=== PATIENT | male | born 1995 | race Two or more races ===

== ENCOUNTER 2019-05-30 08:30 | Emergency (ER) | payer SELFPAY ==
[~2019-05-30] VITALS: Ht 170.2 cm; Wt 67.1 kg
[2019-05-30 09:02] VITALS: BP 125/74
[2019-05-30 09:47] LABS: INFLUENZA A PATIENT NEGATIVE (NEGATIVE)
[2019-05-30 09:48] LABS: INFLUENZA B PATIENT POSITIVE (NEGATIVE)
[2019-05-30] MEDS ORDERED: ONDA4TAB12 PO (09:52)
[2019-05-30] MEDS ORDERED: OSEL75CA PO (09:52)
--- NOTE | 2019-05-30 09:52 | PHYS DOC ---
Past Medical History Past Medical History: No Pertinent History Past Surgical History: No Surgical History Alcohol Use: Occasionally Drug Use: None Adult General Chief Complaint Chief Complaint: FLU SYMPTOM HPI HPI Patient is a 24 year old [f__sex] who presents with [] Review of Systems Review of Systems Constitutional: Denies fever or chills [] Eyes: Denies change in visual acuity, redness, or eye pain [] HENT: Denies nasal congestion or sore throat [] Respiratory: Denies cough or shortness of breath [] Cardiovascular: No additional information not addressed in HPI [] GI: Denies abdominal pain, nausea, vomiting, bloody stools or diarrhea [] : Denies dysuria or hematuria [] Musculoskeletal: Denies back pain or joint pain [] Integument: Denies rash or skin lesions [] Neurologic: Denies headache, focal weakness or sensory changes [] Endocrine: Denies polyuria or polydipsia [] All other systems were reviewed and found to be within normal limits, except as documented in this note. Current Medications Current Medications Current Medications Medications (Trade) Dose Ordered Sig/Cedric Start Time Stop Time Status Last Admin Dose Admin Dexamethasone (Decadron) 10 mg 1X ONCE 05/30/19 09:30 05/30/19 09:31 DC Ibuprofen (Motrin) 600 mg 1X ONCE 05/30/19 09:30 05/30/19 09:31 DC Ondansetron HCl (Zofran Odt) 4 mg 1X ONCE 05/30/19 09:30 05/30/19 09:31 DC Allergies Allergies Allergies Coded Allergies Type Severity Reaction Last Updated Verified No Known Drug Allergies 05/30/19 No Physical Exam Physical Exam Constitutional: Well developed, well nourished, no acute distress, non-toxic appearance. [] HENT: Normocephalic, atraumatic, bilateral external ears normal, oropharynx moist, no oral exudates, nose normal. [] Eyes: PERRLA, EOMI, conjunctiva normal, no discharge. [] Neck: Normal range of motion, no tenderness, supple, no stridor. [] Cardiovascular:Heart rate regular rhythm, no murmur [] Lungs & Thorax: Bilateral breath sounds clear to auscultation [] Abdomen: Bowel sounds normal, soft, no tenderness, no masses, no pulsatile masses. [] Skin: Warm, dry, no erythema, no rash. [] Back: No tenderness, no CVA tenderness. [] Extremities: No tenderness, no cyanosis, no clubbing, ROM intact, no edema. [] Neurologic: Alert and oriented X 3, normal motor function, normal sensory function, no focal deficits noted. [] Psychologic: Affect normal, judgement normal, mood normal. [] Current Patient Data Vital Signs Vital Signs Date Time Temp Pulse Resp B/P (MAP) Pulse Ox O2 Delivery O2 Flow Rate FiO2 05/30/19 09:02 103.1 119 20 125/74 (91) 97 Room Air 103.1 Lab Values Laboratory Tests Test 05/30/19 09:10 Influenza Type A Antigen Negative (NEGATIVE) Influenza Type B Antigen Positive (NEGATIVE) EKG EKG [] Radiology/Procedures Radiology/Procedures [] Course & Med Decision Making Course & Med Decision Making Pertinent Labs and Imaging studies reviewed. (See chart for details) [] Dragon Disclaimer Dragon Disclaimer This electronic medical record was generated, in whole or in part, using a voice recognition dictation system. Departure Departure Impression: Primary Impression: Influenza B Additional Impression: Nausea & vomiting Disposition: 01 HOME, SELF-CARE Condition: STABLE Referrals: NO PCP (PCP) Patient Instructions: Influenza, Adult, [place] Scripts Ondansetron (ONDANSETRON ODT) 4 Mg Tab.rapdis 1 TAB PO PRN Q6-8HRS PRN for NAUSEA, #16 TAB Prov: SAMUEL YUNG DO 05/30/19 Oseltamivir Phosphate (TAMIFLU) 75 Mg Capsule 1 CAP PO BID for influenza, #10 CAP Prov: SAMUEL YUNG DO 05/30/19 Problem Qualifiers Additional Impression: Nausea & vomiting Vomiting type: unspecified Vomiting Intractability: unspecified Qualified Codes: R11.2 - Nausea with vomiting, unspecified SAMUEL YUNG DO May 30, 2019 09:52
[2019-05-30] MEDS: ONDANSETRON ODT 4 MG TAB.RAPDIS. PO ONE (09:53)
[2019-05-30] MEDS: DEXAMETHASONE 4 MG TABLET PO ONE (09:54)
[2019-05-30] MEDS: IBUPROFEN 200 MG TABLET. PO ONE (09:54)
== END 2019-05-30 10:04 | disposition home or self-care (01) ==
LOC: ER 08:30
DX: J10.1 Influenza due to other identified influenza virus with other respiratory manifestations (principal); R11.2 Nausea with vomiting, unspecified; R19.7 Diarrhea, unspecified
CPT/HCPCS: 87804; 99284; J8540; Q0162